=== PATIENT | female | born 1985 | race Caucasian/White ===

== ENCOUNTER 2016-06-26 04:32 | Emergency (ER) | payer OTHER ==
--- NOTE | 2016-06-26 06:04 | ED ORDER SUMMARY ---
..... Patient: SOFIA DICKSON OrderSheet [facility] VisitID: [id number] [place] [address] 31y, F Registration Date/Time: 06/26/2016 ORDER SHEET Weight: 49.8 kg (stated) Allergies: Penicillins GENERAL ORDERS: CBC w Diff Urgent (04:56 06/26/2016 [facility]) (Ack 5:04 SRedmond) (5:44 JDeElena R.N.) CMP Urgent (04:56 06/26/2016 [facility]) (Ack 5:04 SRedmond) (5:44 JDeElena R.N.) UA-Culture if indicated Urgent (04:56 06/26/2016 [facility]) (Ack 5:04 SRedmond) (5:26 SBaldwin) Urine Drug Screen Urgent (04:56 06/26/2016 [facility]) (Ack 5:04 SRedmond) (5:26 SBaldwin) Urine Urgent (04:56 06/26/2016 [facility]) (Ack 5:04 SRedmond) (5:26 SBaldwin) Call (Place call to): (PAT) (04:56 06/26/2016 [facility]) (5:03 SRedmond) Breathalyzer (05:06/26/2016 [facility]) (Ack 5:04 SRedmond) (5:16 SBaldwin) MEDICATION ORDERS: Bactrim DS PO (Tablet 800-160 mg) 1 tab (NOW) (05:24 06/26/2016 [facility]) (Ack 5:44 JDeElena R.N.) (5:47 JDeElena R.N.) IV FLUIDS: ORDER SHEET NOTES: [Electronically signed by Enzo Sheridan R.N. (09:06/26/2016)] [Electronically signed by Jalil Viveros DO (16:06/26/2016)] [Electronically locked/signed by Enzo Sheridan R.N. (09:06/26/2016)]
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
--- NOTE | 2016-06-26 06:04 | ED CLINICAL REPORT ---
Clinical Report - Physicians/Mid Levels [facility] [address] [place] [address] 06/26/2016 4:32 Patient: SOFIA DICKSON Time Seen: 04:44. Arrived- By private vehicle. Historian- patient. HISTORY OF PRESENT ILLNESS Chief Complaint: PARESTHESIA. This started yesterday and is still present. It was gradual in onset and has been waxing/waning. The patient has had tingling. No weakness, numbness, impaired speech or swallowing or visual disturbance. No recent fall. No difficulty walking. (intermittent "shocks" in her feet). At its maximum deficit described as moderate. When seen in the E.D.,deficit described as moderate. No dizziness, seizure or blackouts. Usually is alert and oriented X3 and has normal mobility. (Numbness in the limbs. Pt states that she is being, "shocked," and is slightly paranoid making statements that she feels as though people are out to get her. She has requested food twice since arrival. She states that she grew up in [place], [place] and got exposed to radiation from the [employer]). Similar symptoms previously: Recent medical care: Not recently seen/assessed. REVIEW OF SYSTEMS No fever, headache, head injury, chest pain or difficulty breathing. No cough, sputum production, sore throat, abdominal pain or nausea. No diarrhea, black stools, difficulty with urination, skin rash or enlarged lymph nodes. No joint pain, vomiting, bloody stools or back pain. All systems otherwise negative, except as recorded above. PAST HISTORY ( Primary physician (Michelle Zee). Problems: Migraine Headache. UTI. Surgeries: Dental Surgery). Medications: Imitrex Oral. Wellbutrin Oral (takes as an antidepressant). Allergies: Penicillins. Possible (uncertain--mother is allergic to it). SOCIAL HISTORY Smoker- current status unknown. Occasional alcohol use. History of drug use states, "did quite a bit of pot yesterday": marijuana. ADDITIONAL NOTES The nursing notes have been reviewed. PHYSICAL EXAM Vital Signs: 06/26/2016 04:41 BP: 130/90. HR: 94. RR: 16. O2 saturation: 100%. Temp: 98.9 F. Pain level now: 5/10. Appearance: Alert. Anxious. The patient is agitated. Odor of alcohol is not present. Speech is not slurred. Patient in mild distress. Head: Head atraumatic. Eyes: Pupils equal, round and reactive to light. ENT: Normal ENT inspection. Airway intact. Pharynx normal. Neck: Normal inspection. Neck supple. CVS: Heart sounds normal. Pulses normal. Respiratory: No respiratory distress. Breath sounds normal. Abdomen: Soft and nontender. Back: Normal inspection. Skin: Skin warm and dry. (friction blister left heel area). Extremities: Extremities exhibit normal ROM. No calf tenderness. No lower extremity edema. (friction blister left heel area). Neuro: Alert. Cranial nerves normal (as tested). No cerebellar findings. No motor deficit. No sensory deficit. LABS, X-RAYS, AND EKG Laboratory Tests: UA-Culture if indicated: (RODRIGO: 06/26/2016 04:54) ( [facility] [place] Final results Test Result Flag Units (Reference) URINE COLOR YELLOW URINE APPEARANCE CLEAR URINE GLUCOSE NEGATIVE (NEGATIVE) URINE BILIRUBIN NEGATIVE (NEGATIVE) URINE KETONE NEGATIVE (NEGATIVE) URINE SPECIFIC GRAVITY <= 1.005 L (1.010-1.030) URINE PH 7.0 (5.0-8.0) URINE PROTEIN NEGATIVE (NEGATIVE) URINE UROBILINOGEN 0.2 EU/dL (0.2-1.0) URINE NITRITE POSITIVE (NEGATIVE) URINE BLOOD NEGATIVE (NEGATIVE) URINE LEUK ESTERASE POSITIVE (NEGATIVE) URINE RBC 0-1 rbc/hpf (0-1) URINE WBC 3-5 wbc/hpf (0-1) URINE EPITHELIAL CELLS 1-3 EPI/hpf (0-5) URINE BACTERIA MANY (4+) (NONE SEEN) URINE COMMENT CULTURE INDICATED URINE CULTURES ARE SET-UP BASED ON THE FOLLOWING CRITERIA:POSITIVE NITRITEPOSITIVE LEUKOCYTE ESTERASEGREATER THAN 10 WHITE BLOOD CELLSMODERATE (2+) OR GREATER BACTERIA Urine: (RODRIGO: 06/26/2016 04:54) ( [facility] [place] [facility]12) Final results Test Result Flag Units (Reference) URINE NEGATIVE CBC w Diff: (RODRIGO: 06/26/2016 05:30) ( MsgRcvd 06/26/2016 05:43) Final results Test Result Flag Units (Reference) WHITE BLOOD COUNT 11.3 K/uL (4.5-11.5) RED BLOOD COUNT 3.42 L M/uL (4.00-5.20) HEMOGLOBIN 10.6 L gm/dL (12.0-16.0) HEMATOCRIT 32.5 L % (36.0-46.0) MEAN CELL VOLUME 95 fL (80-100) MEAN CORPUSCULAR HGB 31 pg (26-34) MEAN CORPUSCULAR HGB CONC 33 g/dL (31-37) RED CELL DISTRIBUTION WIDTH 12.1 % (11.6-14.8) PLATELET COUNT 396 K/uL (150-400) NEUTROPHIL % 64.8 % (50-75) LYMPH % 21.4 L % (25-40) MONO % 12.5 % (3-14) EOSINOPHIL % 0.9 % (0-4) BASOPHIL % 0.4 % (0-2) Urine Drug Screen: (RODRIGO: 06/26/2016 04:54) ( MsgRcvd 06/26/2016 05:19) Final results Test Result Flag Units (Reference) AMPHETAMINE/METHAMPHETAMINE POSITIVE H (NEGATIVE) BARBITURATE NEGATIVE (NEGATIVE) BENZODIAZEPINE NEGATIVE (NEGATIVE) CANNABINOID NEGATIVE (NEGATIVE) COCAINE NEGATIVE (NEGATIVE) ECSTASY POSITIVE H (NEGATIVE) METHADONE NEGATIVE (NEGATIVE) OPIATE NEGATIVE (NEGATIVE) The urine drug screen is a qualitative screening test fordrug overdose and abuse. All screen results should beconsidered as presumptive.Drugs screened for are as follows:BenzodiazepinesCocaineAmphetamines/MetamphetaminesTHC (Tetrahydrocannabinol)OpiatesBarbituratesEcstasyMethadonePositive results are unconfirmed. For confirmation, notifythe lab for the specimen to be sent to the reference lab.All confirmations must be performed by a differentmethodology.The ingestion of natural herbal and plant productscontaining Ephedra/Ephedra metabolites can produce in urineone or more substances capable of cross reacting withamphetamine/methamphetamine immunoassays. These testsprovide a preliminary result only. A more specificalternative chemical method must be used to obtain aconfirmed analytical result. CMP: (RODRIGO: 06/26/2016 05:30) ( MsgRcvd 06/26/2016 05:55) Final results Test Result Flag Units (Reference) GLUCOSE 154 H mg/dL (70-110) BUN 8 mg/dL (7-18) CREATININE 0.8 mg/dL (0.6-1.3) Estimated GFR >60 mL/min Estimated GFR- >60 mL/min Note: Persistent reduction over 3 months in eGFR<60 mL/min/1.73 m2 defines CKD. Patients with eGFR values>=60 mL/min/1.73 m2 may also have CKD if evidence ofpersistent proteinuria. Additional information may be foundat www.kidney.org. SODIUM 141 mmol/L (136-145) POTASSIUM 3.6 mmol/L (3.5-5.1) CHLORIDE 105 mmol/L (98-107) CARBON DIOXIDE 25 mmol/L (21-32) CALCIUM 8.5 mg/dL (8.5-10.1) TOTAL PROTEIN 6.3 L g/dL (6.4-8.2) ALBUMIN 2.8 L g/dL (3.3-5.0) BILIRUBIN, TOTAL 0.2 mg/dL (0.0-1.0) ALKALINE PHOSPHATASE 91 U/L (46-116) AST (SGOT) 12 L U/L (15-37) ALT (SGPT) 27 U/L (12-78) . Pulse Oximetry: 06/26/2016 04:41 O2 saturation: 100%. (FIO2 - room air). Interpretation: normal. PROGRESS AND PROCEDURES Course of Care: Pt with meth related psychosis. Seen and evsluatrd by [facility] team - pt offered detox / substance abuse referrals, but she refused. Patient/family counseled. Old ED records reviewed. Disposition: Discharged. Condition: stable and improved. CLINICAL IMPRESSION Paresthesia Chronic substance abuse- tobacco (cigarettes), marijuana, methamphetamines, ecstasy with drug induced psychotic disorder. Mild anemia (ideopathic etiology). Friction blister left foot. INSTRUCTIONS Drink plenty of fluids. Do not smoke. Seek medical help to quit smoking. No alcohol. Warnings: Further evaluation is necessary in order to recheck abnormal lab, obtain test results, conduct further tests and assess the possibility of serious illness. It is very important to follow up with a physician. GENERAL WARNINGS: Return or contact your physician immediately if your condition worsens or changes unexpectedly, if not improving as expected, or if other problems arise. Prescription Medications: Bactrim DS 800 mg / 160 mg: Take 1 tablet orally every 12 hours for 7 days. Dispense fourteen (14). No refills. Substitution is permissible. OTC Medications: Acetaminophen (available over the counter): take according to label instructions. Motrin (available over the counter): take according to label instructions. Follow-up with: [facility], [facility], , [address] [place] [address] Follow up tomorrow. (Electronically signed by Jalil Viveros DO 06/26/2016 16:29)
--- NOTE | 2016-06-26 06:04 | ED ORDER SUMMARY ---
..... Patient: SOFIA DICKSON OrderSheet [facility] VisitID: [id number] [place] [address] 31y, F Registration Date/Time: 06/26/2016 ORDER SHEET Weight: 49.8 kg (stated) Allergies: Penicillins GENERAL ORDERS: CBC w Diff Urgent (04:56 06/26/2016 [facility]) (Ack 5:04 SRedmond) (5:44 JDeElena R.N.) CMP Urgent (04:56 06/26/2016 [facility]) (Ack 5:04 SRedmond) (5:44 JDeElena R.N.) UA-Culture if indicated Urgent (04:56 06/26/2016 [facility]) (Ack 5:04 SRedmond) (5:26 SBaldwin) Urine Drug Screen Urgent (04:56 06/26/2016 [facility]) (Ack 5:04 SRedmond) (5:26 SBaldwin) Urine Urgent (04:56 06/26/2016 [facility]) (Ack 5:04 SRedmond) (5:26 SBaldwin) Call (Place call to): (PAT) (04:56 06/26/2016 [facility]) (5:03 SRedmond) Breathalyzer (05:06/26/2016 [facility]) (Ack 5:04 SRedmond) (5:16 SBaldwin) MEDICATION ORDERS: Bactrim DS PO (Tablet 800-160 mg) 1 tab (NOW) (05:24 06/26/2016 [facility]) (Ack 5:44 JDeElena R.N.) (5:47 JDeElena R.N.) IV FLUIDS: ORDER SHEET NOTES: [Electronically signed by Enzo Sheridan R.N. (09:06/26/2016)] [Electronically signed by Jalil Viveros DO (16:06/26/2016)] [Electronically locked/signed by Enzo Sheridan R.N. (09:06/26/2016)]
--- NOTE | 2016-06-26 16:30 | ED DISCHARGE INSTRUCTIONS ---
Patient: SOFIA DICKSON General Instructions [facility] VisitID: [id number] [place] [address] 31y, F Registration Date/Time: 06/26/2016 Paresthesia Chronic substance abuse- tobacco (cigarettes), marijuana, methamphetamines, ecstasy with drug induced psychotic disorder. Mild anemia (ideopathic etiology). Friction blister left foot. INSTRUCTIONS Drink plenty of fluids. Do not smoke. Seek medical help to quit smoking. No alcohol. Warnings: Further evaluation is necessary in order to recheck abnormal lab, obtain test results, conduct further tests and assess the possibility of serious illness. It is very important to follow up with a physician. GENERAL WARNINGS: Return or contact your physician immediately if your condition worsens or changes unexpectedly, if not improving as expected, or if other problems arise. Prescription Medications: Bactrim DS 800 mg / 160 mg: Take 1 tablet orally every 12 hours for 7 days. Dispense fourteen (14). No refills. Substitution is permissible. OTC Medications: Acetaminophen (available over the counter): take according to label instructions. Motrin (available over the counter): take according to label instructions. Follow-up with: [facility], [facility], , [address] [place] [address], [place] [id number] Follow up tomorrow. ADDITIONAL INFORMATION Drug Abuse Use and abuse of such drugs as marijuana, amphetamines (speed, crank), cocaine, heroin or prescription pain medicines (Vicodin, codeine), sedatives and sleeping pills (Valium, Klonopin), PCP, mescaline and LSD may lead to addiction or dependence. Once this occurs, you are at greater risk for any of the following: Craving for the drug and unable to stop using the drug even though you think you want to stop (psychological dependence) Drug withdrawal symptoms if you stop taking the drug (physical dependence) Loss of your job or your family Arrest, conviction and assisted sentence for possession of an illegal substance or for driving under the influence of such a substance Accidental injuries to yourself or others while you are under the influence of the drug (in a car or at home). HIV infection (much greater risk if you use IV drugs) Other sexually transmitted diseases (herpes, chlamydia, gonorrhea and others) Severe and fatal infection of the heart valves (if you use IV drugs) Stroke, heart attack, hepatitis B or C, kidney failure from overdose Home Care: Admit you have a drug problem. Ask for help from your family and close friends. Seek professional help. This could be in the form of individual psychotherapy or counseling or an outpatient, inpatient, or residential drug treatment program. Join a self-help group for drug abuse. Avoid friends who abuse drugs themselves or tempt you to continue abusing drugs. Eat a balanced diet and begin a regular exercise program. Follow Up with your doctor or as advised by our staff. Contact one of the resources below for help. National [place] on Alcoholism and Drug Dependence www.ncadd.org 981-219-FWJU Narcotics Anonymous www.na.org 860-028-9719 National Alcohol and Substance Abuse Information Center (for referral to treatment programs) www.[employer] 955-165-0700 Get Prompt Medical Attention if any of the following occur: Agitation, anxiety, unable to sleep Unintended weight loss (more than 10 to 15 pounds over 3 months) Seizure Chest pain Fever of 100.4F (38C) or higher, or as directed by your healthcare provider Excess drowsiness or inability to be awakened Shortness of breath Slow breathing under 8 breaths per minute Cough with colored sputum Redness, swelling or tenderness at an injection site Marijuana Abuse Marijuana is the most widely used illegal drug in the [place]. It is called by various names such as pot, weed, blunts, grass, reefer, ganja, hash, hashish. It is usually smoked but can be mixed with foods or brewed as a tea. It is sometimes sold with PCP (Asif Dust) or amphetamine mixed in it. These drugs can cause other harmful side effects. Marijuana can cause the following effects: Changes in mood (stimulated, happy, drowsy, depressed, paranoid) Hallucinations Increased heart rate and blood pressure Increased appetite Time distortion, difficulty concentrating, impaired memory Lung damage (similar to cigarettes with chronic cough, wheezing, frequent colds and bronchitis) You can become psychologically dependent on marijuana. That means the craving to use the drug is emotional or psychological rather than due to physical withdrawal. Is Marijuana Running Your Life? Here are some of the signs: Relying on marijuana to feel good, forget problems, deal with stress or to relax Wanting to be alone most of the time or only with others who use drugs Losing interest in things that used to be important Changes in school or job performance or attendance Spending a lot of time thinking about how to get marijuana Stealing or selling your things so you can buy marijuana Unable to stop using even though you may want to quit Increasing anxiety, anger,or depression Sleeping too much, changes in eating habits (weight loss or gain) Needing to use more to get the same effect Home Care Once you have become addicted to any drug, quitting is hard to do. Most people find they can't quit without help. So, dont try to do this alone. Talk to someone you trust who can support you. Seek professional help. Avoid people and places where drugs are used. That only increases the temptation to use. Follow Up with your doctor or as advised by our staff. For more information or a referral to a treatment center in your area, contact: Your local mental health center or the National Alcohol and Substance Abuse Information Center (370)-269-1993 www.addictioncareNationwide Vac[employer].com [place] on Alcoholism and Drug Dependence 762-443-BNYO www.ncadd.org Marijuana Anonymous 849-620-9970 www.marijuana-anonymous.org Get Prompt Medical Attention if any of the following occur: You feel extreme depression, fear, anxiety, or anger toward yourself or others You feel out of control You feel that you may try to harm yourself or another Anemia [Type Not Specified, Adult] Red blood cells carry oxygen to the tissues of the body. Anemia is a condition where the size or number of red blood cells in the body is reduced. Iron is needed to make red blood cells. The most common cause of anemia is iron deficiency. This may be due to: i) Blood loss (heavy menstrual periods or bleeding from the stomach or intestines); or, ii) Not eating enough iron-containing foods. Other causes of anemia include certain vitamin deficiencies, chronic kidney disease or certain other chronic illnesses. Anemia causes a feeling of being tired and run down. When anemia becomes severe, the skin becomes pale and there is shortness of breath with exertion. Headaches, dizziness, leg cramps with exertion, drowsiness and fatigue are other common symptoms. Home Care: If you are having symptoms of anemia listed above: -- Do not overexert yourself. -- Talk to your doctor before flying on an airplane or traveling to high altitudes. Follow Up with your doctor as advised by our staff. Additional blood testing may be required to determine the exact cause of your anemia. If testing was done on this visit, it may take several days to get all of the results. You may call this facility or follow up with your own doctor to get the results. Get Prompt Medical Attention if any of the following occur: -- Shortness of breath or chest pain -- Worsening of dizziness, fainting -- Vomiting blood or passing red or black-colored stool Paraesthesias Paraesthesia refers to a burning or prickling sensation that is sometimes felt in the hands, arms, legs or feet. It can also occur in other parts of the body. It can also feel like tingling or numbness, skin crawling or itching.The sensation is usually painless. Most people have experienced pins and needles. This feeling happens when legs have been crossed for too long and pressure is placed on a nerve. This is a temporary paraesthesia. It quickly goes away once the pressure is relieved. There are many possible causes for chronic paraesthesias. These include such disorders as stroke, herniated disk (pressing on a nerve), trapped nerve in the shoulder, elbow or wrist (such as carpal tunnel syndrome), vitamin deficiencies or even certain medicines. Laboratory tests are needed to make an accurate diagnosis. These tests may include blood tests, X-ray, CT (computerized tomography) scan or a muscle test (electromyography).Depending on the cause, treatment may include physical therapy. Home Care: Do not make any changes to your medicines without advice from your doctor. If vitamins have been prescribed, remember to take them daily at the recommended dose. Because of a decrease in feeling, a numb hand or foot may be more prone to injury. Take care to protect these areas from cuts, bumps, bruises, vasquez or other injury. Keep your nails trimmed and wash your hands and feet often. Wear shoes that fit well to avoid pressure points, blisters and ulcers. Look at your hands and feet carefully (including the soles of your feet and between your toes) at least once a week and notify your doctor of any open wounds or signs of infection. Follow Up with your doctor or as advised by our staff. You may need further testing to determine the exact cause of your paraesthesia. [NOTE: If blood tests, X-ray, CT scan or electromyography were done, specialists will review them. You will be notified of any new findings that may affect your care.] Get Prompt Medical Attention if any of the following occur: Numbness or weakness of the face, one arm or one leg Slurred speech, confusion, trouble speaking, walking or seeing Severe headache, fainting spell, dizziness or seizure Chest, arm, neck or upper back pain Loss of bladder or bowel control Open wound with redness, swelling or pus How To Quit Smoking Smoking is one of the hardest habits to break. About half of all those who have ever smoked have been able to quit, and most of those (about 70%) who still smoke want to quit. Here are some of the best ways to stop smoking. Keep Trying: It takes most smokers about 8 tries before they are finally able to fully quit. So, the more often you try and fail, the better your chance of quitting the next time! So, don't give up! Go Cold [place]: Most ex-smokers quit cold turkey. Trying to cut back gradually doesn't seem to work as well, perhaps because it continues the smoking habit. Also, it is possible to fool yourself by inhaling more while smoking fewer cigarettes. This results in the same amount of nicotine in your body! Get Support: Support programs can make an important difference, especially for the heavy smoker. These groups offer lectures, methods to change your behavior and peer support. Call the free national Quitline for more information. 066-SEOD-NRC (826-877-7936). Low-cost or free programs are offered by many hospitals, local chapters of the [place] [employer] (026-669-9215) and the [place] [employer] (832-125-9896). Support at home is important too. Non-smokers can help by offering praise and encouragement. If the smoker fails to quit, encourage them to try again! Rfwq-Old-Feqvbwj Medicines: For those who can't quit on their own, Nicotine Replacement Therapy (NRT) may make quitting much easier. Certain aids such as the nicotine patch, gum and lozenge are available without a prescription. However, it is best to use these under the guidance of your doctor. The skin patch provides a steady supply of nicotine to the body. Nicotine gum and lozenge gives temporary bursts of low levels of nicotine. Both methods take the edge off the craving for cigarettes. WARNING: If you feel symptoms of nicotine overdose, such as nausea, vomiting, dizziness, weakness, or fast heartbeat, stop using these and see your doctor. Prescription Medicines: After evaluating your smoking patterns and prior attempts at quitting, your doctor may offer a prescription medicine such as bupropion (Zyban, Wellbutrin), varenicline (Chantix, Champix), a niocotine inhaler or nasal spray. Each has its unique advantage and side effects which your doctor can review with you. Health Benefits Of Quitting: The benefits of quitting start right away and keep improving the longer you go without smokin minutes: blood pressure and pulse return to normal 8 hours: oxygen levels return to normal 2 days: ability to smell and taste begins to improve as damaged nerves start to regrow 2-3 weeks: circulation and lung function improves 1-9 months: decreased cough, congestion and shortness of breath; less tired 1 year: risk of heart attack decreases by half 5 years: risk of lung cancer decreases by half; risk of stroke becomes the same as a non-smoker For information about how to quit smoking, visit the following links: National Cancer [place] , Clearing the Air, Quit Smoking Today - an online booklet. http://www.smokefree.gov/pubs/clearing_the_air.pdf Smokefree.gov http://smokefree.gov/ QuitNet http://www.quitnet.com/ Sulfamethoxazole, Trimethoprim Oral tablet What is this medicine? SULFAMETHOXAZOLE; TRIMETHOPRIM or SMX-TMP (suhl fuh meth OK wiley zohl; trye METH oh prim) is a combination of a sulfonamide antibiotic and a second antibiotic, trimethoprim. It is used to treat or prevent certain kinds of bacterial infections. It will not work for colds, flu, or other viral infections. How should I use this medicine? Take this medicine by mouth with a full glass of water. Follow the directions on the prescription label. Take your medicine at regular intervals. Do not take it more often than directed. Do not skip doses or stop your medicine early. Talk to your loss prevention associate regarding the use of this medicine in children. Special care may be needed. This medicine has been used in children as young as 2 months of age. What side effects may I notice from receiving this medicine? Side effects that you should report to your doctor or health direct care counselor as soon as possible: allergic reactions like skin rash or hives, swelling of the face, lips, or tongue breathing problems fever or chills, sore throat irregular heartbeat, chest pain joint or muscle pain pain or difficulty passing urine red pinpoint spots on skin redness, blistering, peeling or loosening of the skin, including inside the mouth unusual bleeding or bruising unusually weak or tired yellowing of the eyes or skin Side effects that usually do not require medical attention (report to your doctor or health direct care counselor if they continue or are bothersome): diarrhea dizziness headache loss of appetite nausea, vomiting nervousness What may interact with this medicine? Do not take this medicine with any of the following medications: aminobenzoate potassium dofetilide metronidazole This medicine may also interact with the following medications: NISH inhibitors like benazepril, enalapril, lisinopril, and ramipril cyclosporine digoxin diuretics indomethacin medicines for diabetes methenamine methotrexate phenytoin potassium supplements pyrimethamine sulfinpyrazone tricyclic antidepressants warfarin What if I miss a dose? If you miss a dose, take it as soon as you can. If it is almost time for your next dose, take only that dose. Do not take double or extra doses. Where should I keep my medicine? Keep out of the reach of children. Store at room temperature between 20 to 25 degrees C (68 to 77 degrees F). Protect from light. Throw away any unused medicine after the expiration date. What should I tell my health care provider before I take this medicine? They need to know if you have any of these conditions: anemia asthma being treated with anticonvulsants if you frequently drink alcohol containing drinks kidney disease liver disease low level of folic acid or [id number] dehydrogenase poor nutrition or malabsorption porphyria severe allergies thyroid disorder an unusual or allergic reaction to sulfamethoxazole, trimethoprim, sulfa drugs, other medicines, foods, dyes, or preservatives or trying to get breast-feeding What should I watch for while using this medicine? Tell your doctor or health direct care counselor if your symptoms do not improve. Drink several glasses of water a day to reduce the risk of kidney problems. Do not treat diarrhea with over the counter products. Contact your doctor if you have diarrhea that lasts more than 2 days or if it is severe and watery. This medicine can make you more sensitive to the sun. Keep out of the sun. If you cannot avoid being in the sun, wear protective clothing and use a sunscreen. Do not use sun lamps or tanning beds/booths. Acetaminophen Oral tablet What is this medicine? ACETAMINOPHEN (a set a KAVON carina fen) is a pain reliever. It is used to treat mild pain and fever. How should I use this medicine? Take this medicine by mouth with a glass of water. Follow the directions on the package or prescription label. Take your medicine at regular intervals. Do not take your medicine more often than directed. Talk to your loss prevention associate regarding the use of this medicine in children. While this drug may be prescribed for children as young as 6 years of age for selected conditions, precautions do apply. What side effects may I notice from receiving this medicine? Side effects that you should report to your doctor or health direct care counselor as soon as possible: allergic reactions like skin rash, itching or hives, swelling of the face, lips, or tongue breathing problems fever or sore throat redness, blistering, peeling or loosening of the skin, including inside the mouth trouble passing urine or change in the amount of urine unusual bleeding or bruising unusually weak or tired yellowing of the eyes or skin Side effects that usually do not require medical attention (report to your doctor or health direct care counselor if they continue or are bothersome): headache nausea, stomach upset What may interact with this medicine? alcohol imatinib isoniazid other medicines with acetaminophen What if I miss a dose? If you miss a dose, take it as soon as you can. If it is almost time for your next dose, take only that dose. Do not take double or extra doses. Where should I keep my medicine? Keep out of reach of children. Store at room temperature between 20 and 25 degrees C (68 and 77 degrees F). Protect from moisture and heat. Throw away any unused medicine after the expiration date. What should I tell my health care provider before I take this medicine? They need to know if you have any of these conditions: if you frequently drink alcohol containing drinks liver disease an unusual or allergic reaction to acetaminophen, other medicines, foods, dyes or preservatives or trying to get breast-feeding What should I watch for while using this medicine? Tell your doctor or health direct care counselor if the pain lasts more than 10 days (5 days for children), if it gets worse, or if there is a new or different kind of pain. Also, check with your doctor if a fever lasts for more than 3 days. Do not take other medicines that contain acetaminophen with this medicine. Always read labels carefully. If you have questions, ask your doctor or pharmacist. If you take too much acetaminophen get medical help right away. Too much acetaminophen can be very dangerous and cause liver damage. Even if you do not have symptoms, it is important to get help right away. Ibuprofen Oral tablet What is this medicine? IBUPROFEN (eye BYOO proe fen) is a non-steroidal anti-inflammatory drug (NSAID). It is used for dental pain, fever, headaches or migraines, osteoarthritis, rheumatoid arthritis, or painful monthly periods. It can also relieve minor aches and pains caused by a cold, flu, or sore throat. How should I use this medicine? Take this medicine by mouth with a glass of water. Follow the directions on the prescription label. Take this medicine with food if your stomach gets upset. Try to not lie down for at least 10 minutes after you take the medicine. Take your medicine at regular intervals. Do not take your medicine more often than directed. A special MedGuide will be given to you by the pharmacist with each prescription and refill. Be sure to read this information carefully each time. Talk to your loss prevention associate regarding the use of this medicine in children. Special care may be needed. What side effects may I notice from receiving this medicine? Side effects that you should report to your doctor or health direct care counselor as soon as possible: allergic reactions like skin rash, itching or hives, swelling of the face, lips, or tongue black or bloody stools, blood in the urine or in vomit breathing problems changes in vision chest pain general ill feeling or flu-like symptoms nausea or vomiting redness, blistering, peeling or loosening of the skin, including inside the mouth slurred speech or weakness on one side of the body stomach pain unexplained weight gain or swelling unusually weak or tired yellowing of eyes or skin Side effects that usually do not require medical attention (report to your doctor or health direct care counselor if they continue or are bothersome): constipation or diarrhea dizziness gas or heartburn stomach upset What may interact with this medicine? Do not take this medicine with any of the following medications: cidofovir ketorolac methotrexate pemetrexed This medicine may also interact with the following medications: alcohol aspirin diuretics lithium other drugs for inflammation like prednisone warfarin What if I miss a dose? If you miss a dose, take it as soon as you can. If it is almost time for your next dose, take only that dose. Do not take double or extra doses. Where should I keep my medicine? Keep out of the reach of children. Store at room temperature between 15 and 30 degrees C (59 and 86 degrees F). Keep container tightly closed. Throw away any unused medicine after the expiration date. What should I tell my health care provider before I take this medicine? They need to know if you have any of these conditions: asthma cigarette smoker drink more than 3 alcohol containing drinks a day heart disease or circulation problems such as heart failure or leg edema (fluid retention) high blood pressure kidney disease liver disease stomach bleeding or ulcers an unusual or allergic reaction to ibuprofen, aspirin, other NSAIDS, other medicines, foods, dyes, or preservatives or trying to get breast-feeding What should I watch for while using this medicine? Tell your doctor or healthcare professional if your symptoms do not start to get better or if they get worse. This medicine does not prevent heart attack or stroke. In fact, this medicine may increase the chance of a heart attack or stroke. The chance may increase with longer use of this medicine and in people who have heart disease. If you take aspirin to prevent heart attack or stroke, talk with your doctor or health direct care counselor. Do not take other medicines that contain aspirin, ibuprofen, or naproxen with this medicine. Side effects such as stomach upset, nausea, or ulcers may be more likely to occur. Many medicines available without a prescription should not be taken with this medicine. This medicine can cause ulcers and bleeding in the stomach and intestines at any time during treatment. Ulcers and bleeding can happen without warning symptoms and can cause . To reduce your risk, do not smoke cigarettes or drink alcohol while you are taking this medicine. You may get drowsy or dizzy. Do not drive, use machinery, or do anything that needs mental alertness until you know how this medicine affects you. Do not stand or sit up quickly, especially if you are an older patient. This reduces the risk of dizzy or fainting spells. This medicine can cause you to bleed more easily. Try to avoid damage to your teeth and gums when you brush or floss your teeth. You have been given the following additional information: Drug Abuse Marijuana Abuse Anemia, Type Not Specified (Adult) Paraesthesias Smoking Cessation Sulfamethoxazole, Trimethoprim Oral tablet Acetaminophen Oral tablet Ibuprofen Oral tablet (Electronically signed by Jalil Viveros DO 06/26/2016 16:29)
--- NOTE | 2016-06-26 16:30 | ED MAR SUMMARY ---
..... Medication Administration Record [facility] [address] [place] [address] Patient: SOFIA DICKSON Visit ID: [id number] 31y, F Weight: 49.8 kg Height/Length: 67 in BMI: 17.2 ALLERGIES: Penicillins Given 05:47 06/26/2016 Bhupinder Dale RGrabiel Medication Administered: BACTRIM DS [PO] (SULFAMETHOXAZOLE-TMP DS), Dose: 1 tab Tablets PO. Medication Ordered: Bactrim DS PO (Tablet 800-160 mg) 1 tab (NOW).
--- NOTE | 2016-06-26 16:30 | ED MED RECONCILIATION SUMMARY ---
Patient: SOFIA DICKSON Medication Reconciliation Report [facility] VisitID: [id number] [place] [address] 31y, F Registration Date/Time: 06/26/2016 Weight: 49.8 kg Height/Length: 67 in. BMI: 17.2 ALLERGIES: Penicillins The patient's Home Medications are listed below: THE FOLLOWING MEDICATIONS NEED TO BE RECONCILED: Imitrex Oral Wellbutrin Oral, takes as an antidepressant The source(s) of the original Home Medication information: Not obtained. The following Medications were given to the patient in the Emergency Department: Bactrim DS [PO] PO 1 tab, administered: 06/26/2016 5:47:00 AM The following Medications were prescribed to the patient: Acetaminophen (available over the counter): take according to label instructions. -- Jalil Viveros DO Motrin (available over the counter): take according to label instructions. -- Jalil Viveros DO Bactrim DS 800 mg / 160 mg: Take 1 tablet orally every 12 hours for 7 days. Dispense fourteen (14). No refills. Substitution is permissible. -- Jalil Viveros DO
--- NOTE | 2016-06-26 16:30 | ED MAR SUMMARY ---
..... Medication Administration Record [facility] [address] [place] [address] Patient: SOFIA DICKSON Visit ID: [id number] 31y, F Weight: 49.8 kg Height/Length: 67 in BMI: 17.2 ALLERGIES: Penicillins Given 05:47 06/26/2016 Bhupinder Dale RGrabiel Medication Administered: BACTRIM DS [PO] (SULFAMETHOXAZOLE-TMP DS), Dose: 1 tab Tablets PO. Medication Ordered: Bactrim DS PO (Tablet 800-160 mg) 1 tab (NOW).
--- NOTE | 2016-06-26 16:30 | ED MED RECONCILIATION SUMMARY ---
Patient: SOFIA DICKSON Medication Reconciliation Report [facility] VisitID: [id number] [place] [address] 31y, F Registration Date/Time: 06/26/2016 Weight: 49.8 kg Height/Length: 67 in. BMI: 17.2 ALLERGIES: Penicillins The patient's Home Medications are listed below: THE FOLLOWING MEDICATIONS NEED TO BE RECONCILED: Imitrex Oral Wellbutrin Oral, takes as an antidepressant The source(s) of the original Home Medication information: Not obtained. The following Medications were given to the patient in the Emergency Department: Bactrim DS [PO] PO 1 tab, administered: 06/26/2016 5:47:00 AM The following Medications were prescribed to the patient: Acetaminophen (available over the counter): take according to label instructions. -- Jalil Viveros DO Motrin (available over the counter): take according to label instructions. -- Jalil Viveros DO Bactrim DS 800 mg / 160 mg: Take 1 tablet orally every 12 hours for 7 days. Dispense fourteen (14). No refills. Substitution is permissible. -- Jalil Viveros DO
--- NOTE | 2016-06-26 16:30 | ED DISCHARGE INSTRUCTIONS ---
Patient: SOFIA DICKSON General Instructions [facility] VisitID: [id number] [place] [address] 31y, F Registration Date/Time: 06/26/2016 Paresthesia Chronic substance abuse- tobacco (cigarettes), marijuana, methamphetamines, ecstasy with drug induced psychotic disorder. Mild anemia (ideopathic etiology). Friction blister left foot. INSTRUCTIONS Drink plenty of fluids. Do not smoke. Seek medical help to quit smoking. No alcohol. Warnings: Further evaluation is necessary in order to recheck abnormal lab, obtain test results, conduct further tests and assess the possibility of serious illness. It is very important to follow up with a physician. GENERAL WARNINGS: Return or contact your physician immediately if your condition worsens or changes unexpectedly, if not improving as expected, or if other problems arise. Prescription Medications: Bactrim DS 800 mg / 160 mg: Take 1 tablet orally every 12 hours for 7 days. Dispense fourteen (14). No refills. Substitution is permissible. OTC Medications: Acetaminophen (available over the counter): take according to label instructions. Motrin (available over the counter): take according to label instructions. Follow-up with: [facility], [facility], , [address] [place] [address], [place] [id number] Follow up tomorrow. ADDITIONAL INFORMATION Drug Abuse Use and abuse of such drugs as marijuana, amphetamines (speed, crank), cocaine, heroin or prescription pain medicines (Vicodin, codeine), sedatives and sleeping pills (Valium, Klonopin), PCP, mescaline and LSD may lead to addiction or dependence. Once this occurs, you are at greater risk for any of the following: Craving for the drug and unable to stop using the drug even though you think you want to stop (psychological dependence) Drug withdrawal symptoms if you stop taking the drug (physical dependence) Loss of your job or your family Arrest, conviction and halfway sentence for possession of an illegal substance or for driving under the influence of such a substance Accidental injuries to yourself or others while you are under the influence of the drug (in a car or at home). HIV infection (much greater risk if you use IV drugs) Other sexually transmitted diseases (herpes, chlamydia, gonorrhea and others) Severe and fatal infection of the heart valves (if you use IV drugs) Stroke, heart attack, hepatitis B or C, kidney failure from overdose Home Care: Admit you have a drug problem. Ask for help from your family and close friends. Seek professional help. This could be in the form of individual psychotherapy or counseling or an outpatient, inpatient, or residential drug treatment program. Join a self-help group for drug abuse. Avoid friends who abuse drugs themselves or tempt you to continue abusing drugs. Eat a balanced diet and begin a regular exercise program. Follow Up with your doctor or as advised by our staff. Contact one of the resources below for help. National [place] on Alcoholism and Drug Dependence www.ncadd.org 089-659-LHCH Narcotics Anonymous www.na.org 702-466-6416 National Alcohol and Substance Abuse Information Center (for referral to treatment programs) www.Phosphagenics 928-995-5382 Get Prompt Medical Attention if any of the following occur: Agitation, anxiety, unable to sleep Unintended weight loss (more than 10 to 15 pounds over 3 months) Seizure Chest pain Fever of 100.4F (38C) or higher, or as directed by your healthcare provider Excess drowsiness or inability to be awakened Shortness of breath Slow breathing under 8 breaths per minute Cough with colored sputum Redness, swelling or tenderness at an injection site Marijuana Abuse Marijuana is the most widely used illegal drug in the [place]. It is called by various names such as pot, weed, blunts, grass, reefer, ganja, hash, hashish. It is usually smoked but can be mixed with foods or brewed as a tea. It is sometimes sold with PCP (Asif Dust) or amphetamine mixed in it. These drugs can cause other harmful side effects. Marijuana can cause the following effects: Changes in mood (stimulated, happy, drowsy, depressed, paranoid) Hallucinations Increased heart rate and blood pressure Increased appetite Time distortion, difficulty concentrating, impaired memory Lung damage (similar to cigarettes with chronic cough, wheezing, frequent colds and bronchitis) You can become psychologically dependent on marijuana. That means the craving to use the drug is emotional or psychological rather than due to physical withdrawal. Is Marijuana Running Your Life? Here are some of the signs: Relying on marijuana to feel good, forget problems, deal with stress or to relax Wanting to be alone most of the time or only with others who use drugs Losing interest in things that used to be important Changes in school or job performance or attendance Spending a lot of time thinking about how to get marijuana Stealing or selling your things so you can buy marijuana Unable to stop using even though you may want to quit Increasing anxiety, anger,or depression Sleeping too much, changes in eating habits (weight loss or gain) Needing to use more to get the same effect Home Care Once you have become addicted to any drug, quitting is hard to do. Most people find they can't quit without help. So, dont try to do this alone. Talk to someone you trust who can support you. Seek professional help. Avoid people and places where drugs are used. That only increases the temptation to use. Follow Up with your doctor or as advised by our staff. For more information or a referral to a treatment center in your area, contact: Your local mental health center or the National Alcohol and Substance Abuse Information Center (593)-389-7504 www.addictioncareBoxions.com National [place] on Alcoholism and Drug Dependence 809-534-ZMSP www.ncadd.org Marijuana Anonymous 248-929-8611 www.marijuana-anonymous.org Get Prompt Medical Attention if any of the following occur: You feel extreme depression, fear, anxiety, or anger toward yourself or others You feel out of control You feel that you may try to harm yourself or another Anemia [Type Not Specified, Adult] Red blood cells carry oxygen to the tissues of the body. Anemia is a condition where the size or number of red blood cells in the body is reduced. Iron is needed to make red blood cells. The most common cause of anemia is iron deficiency. This may be due to: i) Blood loss (heavy menstrual periods or bleeding from the stomach or intestines); or, ii) Not eating enough iron-containing foods. Other causes of anemia include certain vitamin deficiencies, chronic kidney disease or certain other chronic illnesses. Anemia causes a feeling of being tired and run down. When anemia becomes severe, the skin becomes pale and there is shortness of breath with exertion. Headaches, dizziness, leg cramps with exertion, drowsiness and fatigue are other common symptoms. Home Care: If you are having symptoms of anemia listed above: -- Do not overexert yourself. -- Talk to your doctor before flying on an airplane or traveling to high altitudes. Follow Up with your doctor as advised by our staff. Additional blood testing may be required to determine the exact cause of your anemia. If testing was done on this visit, it may take several days to get all of the results. You may call this facility or follow up with your own doctor to get the results. Get Prompt Medical Attention if any of the following occur: -- Shortness of breath or chest pain -- Worsening of dizziness, fainting -- Vomiting blood or passing red or black-colored stool Paraesthesias Paraesthesia refers to a burning or prickling sensation that is sometimes felt in the hands, arms, legs or feet. It can also occur in other parts of the body. It can also feel like tingling or numbness, skin crawling or itching.The sensation is usually painless. Most people have experienced pins and needles. This feeling happens when legs have been crossed for too long and pressure is placed on a nerve. This is a temporary paraesthesia. It quickly goes away once the pressure is relieved. There are many possible causes for chronic paraesthesias. These include such disorders as stroke, herniated disk (pressing on a nerve), trapped nerve in the shoulder, elbow or wrist (such as carpal tunnel syndrome), vitamin deficiencies or even certain medicines. Laboratory tests are needed to make an accurate diagnosis. These tests may include blood tests, X-ray, CT (computerized tomography) scan or a muscle test (electromyography).Depending on the cause, treatment may include physical therapy. Home Care: Do not make any changes to your medicines without advice from your doctor. If vitamins have been prescribed, remember to take them daily at the recommended dose. Because of a decrease in feeling, a numb hand or foot may be more prone to injury. Take care to protect these areas from cuts, bumps, bruises, vasquez or other injury. Keep your nails trimmed and wash your hands and feet often. Wear shoes that fit well to avoid pressure points, blisters and ulcers. Look at your hands and feet carefully (including the soles of your feet and between your toes) at least once a week and notify your doctor of any open wounds or signs of infection. Follow Up with your doctor or as advised by our staff. You may need further testing to determine the exact cause of your paraesthesia. [NOTE: If blood tests, X-ray, CT scan or electromyography were done, specialists will review them. You will be notified of any new findings that may affect your care.] Get Prompt Medical Attention if any of the following occur: Numbness or weakness of the face, one arm or one leg Slurred speech, confusion, trouble speaking, walking or seeing Severe headache, fainting spell, dizziness or seizure Chest, arm, neck or upper back pain Loss of bladder or bowel control Open wound with redness, swelling or pus How To Quit Smoking Smoking is one of the hardest habits to break. About half of all those who have ever smoked have been able to quit, and most of those (about 70%) who still smoke want to quit. Here are some of the best ways to stop smoking. Keep Trying: It takes most smokers about 8 tries before they are finally able to fully quit. So, the more often you try and fail, the better your chance of quitting the next time! So, don't give up! Go [place]: Most ex-smokers quit cold turkey. Trying to cut back gradually doesn't seem to work as well, perhaps because it continues the smoking habit. Also, it is possible to fool yourself by inhaling more while smoking fewer cigarettes. This results in the same amount of nicotine in your body! Get Support: Support programs can make an important difference, especially for the heavy smoker. These groups offer lectures, methods to change your behavior and peer support. Call the free national Quitline for more information. 044-LCPT-UKD (557-602-7528). Low-cost or free programs are offered by many hospitals, local chapters of the [place] [employer] (488-941-2286) and the [place] [employer] (775-059-4206). Support at home is important too. Non-smokers can help by offering praise and encouragement. If the smoker fails to quit, encourage them to try again! Gjjy-Trn-Germabw Medicines: For those who can't quit on their own, Nicotine Replacement Therapy (NRT) may make quitting much easier. Certain aids such as the nicotine patch, gum and lozenge are available without a prescription. However, it is best to use these under the guidance of your doctor. The skin patch provides a steady supply of nicotine to the body. Nicotine gum and lozenge gives temporary bursts of low levels of nicotine. Both methods take the edge off the craving for cigarettes. WARNING: If you feel symptoms of nicotine overdose, such as nausea, vomiting, dizziness, weakness, or fast heartbeat, stop using these and see your doctor. Prescription Medicines: After evaluating your smoking patterns and prior attempts at quitting, your doctor may offer a prescription medicine such as bupropion (Zyban, Wellbutrin), varenicline (Chantix, Champix), a niocotine inhaler or nasal spray. Each has its unique advantage and side effects which your doctor can review with you. Health Benefits Of Quitting: The benefits of quitting start right away and keep improving the longer you go without smokin minutes: blood pressure and pulse return to normal 8 hours: oxygen levels return to normal 2 days: ability to smell and taste begins to improve as damaged nerves start to regrow 2-3 weeks: circulation and lung function improves 1-9 months: decreased cough, congestion and shortness of breath; less tired 1 year: risk of heart attack decreases by half 5 years: risk of lung cancer decreases by half; risk of stroke becomes the same as a non-smoker For information about how to quit smoking, visit the following links: National Cancer [employer] , Clearing the Air, Quit Smoking Today - an online booklet. http://www.smokefree.gov/pubs/clearing_the_air.pdf Smokefree.gov http://smokefree.gov/ QuitNet http://www.quitnet.com/ Sulfamethoxazole, Trimethoprim Oral tablet What is this medicine? SULFAMETHOXAZOLE; TRIMETHOPRIM or SMX-TMP (suhl fuh meth OK wiley zohl; trye METH oh prim) is a combination of a sulfonamide antibiotic and a second antibiotic, trimethoprim. It is used to treat or prevent certain kinds of bacterial infections. It will not work for colds, flu, or other viral infections. How should I use this medicine? Take this medicine by mouth with a full glass of water. Follow the directions on the prescription label. Take your medicine at regular intervals. Do not take it more often than directed. Do not skip doses or stop your medicine early. Talk to your slip maker regarding the use of this medicine in children. Special care may be needed. This medicine has been used in children as young as 2 months of age. What side effects may I notice from receiving this medicine? Side effects that you should report to your doctor or health professional healthcare representative as soon as possible: allergic reactions like skin rash or hives, swelling of the face, lips, or tongue breathing problems fever or chills, sore throat irregular heartbeat, chest pain joint or muscle pain pain or difficulty passing urine red pinpoint spots on skin redness, blistering, peeling or loosening of the skin, including inside the mouth unusual bleeding or bruising unusually weak or tired yellowing of the eyes or skin Side effects that usually do not require medical attention (report to your doctor or health professional healthcare representative if they continue or are bothersome): diarrhea dizziness headache loss of appetite nausea, vomiting nervousness What may interact with this medicine? Do not take this medicine with any of the following medications: aminobenzoate potassium dofetilide metronidazole This medicine may also interact with the following medications: INSH inhibitors like benazepril, enalapril, lisinopril, and ramipril cyclosporine digoxin diuretics indomethacin medicines for diabetes methenamine methotrexate phenytoin potassium supplements pyrimethamine sulfinpyrazone tricyclic antidepressants warfarin What if I miss a dose? If you miss a dose, take it as soon as you can. If it is almost time for your next dose, take only that dose. Do not take double or extra doses. Where should I keep my medicine? Keep out of the reach of children. Store at room temperature between 20 to 25 degrees C (68 to 77 degrees F). Protect from light. Throw away any unused medicine after the expiration date. What should I tell my health care provider before I take this medicine? They need to know if you have any of these conditions: anemia asthma being treated with anticonvulsants if you frequently drink alcohol containing drinks kidney disease liver disease low level of folic acid or [id number] dehydrogenase poor nutrition or malabsorption porphyria severe allergies thyroid disorder an unusual or allergic reaction to sulfamethoxazole, trimethoprim, sulfa drugs, other medicines, foods, dyes, or preservatives or trying to get breast-feeding What should I watch for while using this medicine? Tell your doctor or health professional healthcare representative if your symptoms do not improve. Drink several glasses of water a day to reduce the risk of kidney problems. Do not treat diarrhea with over the counter products. Contact your doctor if you have diarrhea that lasts more than 2 days or if it is severe and watery. This medicine can make you more sensitive to the sun. Keep out of the sun. If you cannot avoid being in the sun, wear protective clothing and use a sunscreen. Do not use sun lamps or tanning beds/booths. Acetaminophen Oral tablet What is this medicine? ACETAMINOPHEN (a set a KAVON carina fen) is a pain reliever. It is used to treat mild pain and fever. How should I use this medicine? Take this medicine by mouth with a glass of water. Follow the directions on the package or prescription label. Take your medicine at regular intervals. Do not take your medicine more often than directed. Talk to your slip maker regarding the use of this medicine in children. While this drug may be prescribed for children as young as 6 years of age for selected conditions, precautions do apply. What side effects may I notice from receiving this medicine? Side effects that you should report to your doctor or health professional healthcare representative as soon as possible: allergic reactions like skin rash, itching or hives, swelling of the face, lips, or tongue breathing problems fever or sore throat redness, blistering, peeling or loosening of the skin, including inside the mouth trouble passing urine or change in the amount of urine unusual bleeding or bruising unusually weak or tired yellowing of the eyes or skin Side effects that usually do not require medical attention (report to your doctor or health professional healthcare representative if they continue or are bothersome): headache nausea, stomach upset What may interact with this medicine? alcohol imatinib isoniazid other medicines with acetaminophen What if I miss a dose? If you miss a dose, take it as soon as you can. If it is almost time for your next dose, take only that dose. Do not take double or extra doses. Where should I keep my medicine? Keep out of reach of children. Store at room temperature between 20 and 25 degrees C (68 and 77 degrees F). Protect from moisture and heat. Throw away any unused medicine after the expiration date. What should I tell my health care provider before I take this medicine? They need to know if you have any of these conditions: if you frequently drink alcohol containing drinks liver disease an unusual or allergic reaction to acetaminophen, other medicines, foods, dyes or preservatives or trying to get breast-feeding What should I watch for while using this medicine? Tell your doctor or health professional healthcare representative if the pain lasts more than 10 days (5 days for children), if it gets worse, or if there is a new or different kind of pain. Also, check with your doctor if a fever lasts for more than 3 days. Do not take other medicines that contain acetaminophen with this medicine. Always read labels carefully. If you have questions, ask your doctor or pharmacist. If you take too much acetaminophen get medical help right away. Too much acetaminophen can be very dangerous and cause liver damage. Even if you do not have symptoms, it is important to get help right away. Ibuprofen Oral tablet What is this medicine? IBUPROFEN (eye BYOO proe fen) is a non-steroidal anti-inflammatory drug (NSAID). It is used for dental pain, fever, headaches or migraines, osteoarthritis, rheumatoid arthritis, or painful monthly periods. It can also relieve minor aches and pains caused by a cold, flu, or sore throat. How should I use this medicine? Take this medicine by mouth with a glass of water. Follow the directions on the prescription label. Take this medicine with food if your stomach gets upset. Try to not lie down for at least 10 minutes after you take the medicine. Take your medicine at regular intervals. Do not take your medicine more often than directed. A special MedGuide will be given to you by the pharmacist with each prescription and refill. Be sure to read this information carefully each time. Talk to your slip maker regarding the use of this medicine in children. Special care may be needed. What side effects may I notice from receiving this medicine? Side effects that you should report to your doctor or health professional healthcare representative as soon as possible: allergic reactions like skin rash, itching or hives, swelling of the face, lips, or tongue black or bloody stools, blood in the urine or in vomit breathing problems changes in vision chest pain general ill feeling or flu-like symptoms nausea or vomiting redness, blistering, peeling or loosening of the skin, including inside the mouth slurred speech or weakness on one side of the body stomach pain unexplained weight gain or swelling unusually weak or tired yellowing of eyes or skin Side effects that usually do not require medical attention (report to your doctor or health professional healthcare representative if they continue or are bothersome): constipation or diarrhea dizziness gas or heartburn stomach upset What may interact with this medicine? Do not take this medicine with any of the following medications: cidofovir ketorolac methotrexate pemetrexed This medicine may also interact with the following medications: alcohol aspirin diuretics lithium other drugs for inflammation like prednisone warfarin What if I miss a dose? If you miss a dose, take it as soon as you can. If it is almost time for your next dose, take only that dose. Do not take double or extra doses. Where should I keep my medicine? Keep out of the reach of children. Store at room temperature between 15 and 30 degrees C (59 and 86 degrees F). Keep container tightly closed. Throw away any unused medicine after the expiration date. What should I tell my health care provider before I take this medicine? They need to know if you have any of these conditions: asthma cigarette smoker drink more than 3 alcohol containing drinks a day heart disease or circulation problems such as heart failure or leg edema (fluid retention) high blood pressure kidney disease liver disease stomach bleeding or ulcers an unusual or allergic reaction to ibuprofen, aspirin, other NSAIDS, other medicines, foods, dyes, or preservatives or trying to get breast-feeding What should I watch for while using this medicine? Tell your doctor or healthcare professional if your symptoms do not start to get better or if they get worse. This medicine does not prevent heart attack or stroke. In fact, this medicine may increase the chance of a heart attack or stroke. The chance may increase with longer use of this medicine and in people who have heart disease. If you take aspirin to prevent heart attack or stroke, talk with your doctor or health professional healthcare representative. Do not take other medicines that contain aspirin, ibuprofen, or naproxen with this medicine. Side effects such as stomach upset, nausea, or ulcers may be more likely to occur. Many medicines available without a prescription should not be taken with this medicine. This medicine can cause ulcers and bleeding in the stomach and intestines at any time during treatment. Ulcers and bleeding can happen without warning symptoms and can cause . To reduce your risk, do not smoke cigarettes or drink alcohol while you are taking this medicine. You may get drowsy or dizzy. Do not drive, use machinery, or do anything that needs mental alertness until you know how this medicine affects you. Do not stand or sit up quickly, especially if you are an older patient. This reduces the risk of dizzy or fainting spells. This medicine can cause you to bleed more easily. Try to avoid damage to your teeth and gums when you brush or floss your teeth. You have been given the following additional information: Drug Abuse Marijuana Abuse Anemia, Type Not Specified (Adult) Paraesthesias Smoking Cessation Sulfamethoxazole, Trimethoprim Oral tablet Acetaminophen Oral tablet Ibuprofen Oral tablet (Electronically signed by Jalil Viveros DO 06/26/2016 16:29)
== END 2016-06-26 09:15 | disposition home or self-care (01) ==
LOC: ED SRH 04:32
DX: R20.2 Paresthesia of skin (principal); Y92.9 Unspecified place or not applicable; F17.210 Nicotine dependence, cigarettes, uncomplicated; F12.159 Cannabis abuse with psychotic disorder, unspecified; F15.159 Other stimulant abuse with stimulant-induced psychotic disorder, unspecified; D64.9 Anemia, unspecified; S90.822A Blister (nonthermal), left foot, initial encounter; X58.XXXA Exposure to other specified factors, initial encounter; Y99.9 Unspecified external cause status; Y93.9 Activity, unspecified
CPT/HCPCS: 90004; 90074; 90100; 90148; 90469; 92760; 92761; 92762; 92763; 92764; 92765; 92766; 92767; 93070; 95059